=== PATIENT | male | born 1965 | race Caucasian/White ===

== ENCOUNTER 2022-09-10 02:59 | Emergency (ER) | payer BC, SELFPAY ==
[2022-09-10 03:05] VITALS: BP 166/102; PULSE 68; RESP 18; TEMP 36.5; O2SAT 100
--- NOTE | 2022-09-10 03:25 | CT_ITS ---
[address] [address] Patient Name: TEDDY DIAL MRN: [id number] date: 1965 Sex: M Assigned Patient Location: ER Current Patient Location: ED.MAIN Accession/Order Number: [id number] Exam Date: 09/10/2022 03:24 Report Date: 09/10/2022 04:12 At the request of: LEO MARKER Procedure: CT lumbar spine wo con EXAM: CT lumbar spine wo con HISTORY: left lower back pain reported right lower lumbar pain radiating down right leg for 4 days. COMPARISON: MRI lumbar spine 12/22/2017 TECHNIQUE: Multiple axial views CT lumbar spine without IV contrast. Coronal sagittal reformats. FINDINGS: No acute vertebral body height loss, acute fracture line, traumatic subluxation, or focal aggressive lytic destruction. Remote T12 vertebral body anterior wedging height loss of 20%, similar to prior exam. L2 vertebral body oval lucent 1.1 cm hemangioma. L3 vertebral body inferior endplate Schmorl's nodes. Prior laminectomy at L5 and L3. At T12-L1: Unremarkable. At L1-L2: Mild annular disc bulge, facet arthropathy, and ligamentum flavum thickening. No severe bony canal or bony foraminal narrowing. At L2-L3: Mild broad-based annular disc bulge, facet arthropathy, and ligamentum flavum thickening contribute to severe bony spinal canal stenosis, AP diameter of 5.5 mm. Mild left bony spinal canal stenosis. At L3-L4: Prior surgical changes of laminectomy. Broad-based annular disc bulge/herniation, facet arthropathy, and ligamentum flavum thickening contribute to severe bony spinal canal stenosis with AP diameter of 4 mm. Bilateral subarticular recess stenosis. Moderate bilateral bony foraminal stenosis. At L4-L5: Broad-based annular disc bulge/herniation, facet arthropathy, and ligamentum flavum thickening contribute to severe bony spinal canal stenosis with AP diameter of 5 mm. Bilateral subarticular recess stenosis. Severe right bony foraminal stenosis secondary to foraminal/extraforaminal disc and facet arthropathy. Moderate left bony foraminal stenosis. Can consider MRI lumbar spine to better evaluate for any nerve impingement as indicated. At L5-S1: Prior laminectomy. Decompressed bony spinal canal. Disc bulge and facet arthropathy contribute to severe bilateral bony foraminal stenosis. CT/CT lumbar spine wo con IMPRESSION: Multilevel lumbar disc bulges/herniations, facet arthropathy, and ligamentum flavum thickening as described above. Please see above. Electronically authenticated by: OSKAR RODRÍGUEZ Date: 09/10/2022 04:12
--- NOTE | 2022-09-10 03:25 | PC.NURSE ---
patient states wednesday he developed low right sided back pain that travels down his right leg. states pain has been increasing and today became unbearable. states he has history of spinal stenosis and multiple back surgeries. denies any recent trauma or injury.
--- NOTE | 2022-09-10 03:37 | ED.BACK1 ---
HPI - Back Pain/Injury General Chief Complaint: Back Pain/Injury Stated Complaint: LOWER BACK PAIN/RT LEG Time Seen by Provider: 09/10/22 03:04 Source: patient and family Mode of arrival: walk-in History of Present Illness HPI Narrative: This 56-year-old male with a history of chronic low back pain who has had several surgeries presents for evaluation of pain in the right low back with radiation into the right buttock and down the back of his right leg. Symptoms have been present since Wednesday but have been increasingly worsening. He is on several medications including low-dose naltrexone for the pain. He denies any recent injury. He has no chest pain or shortness of breath. He states he cannot sit, lie, stand or get comfortable in bed. He has never been diagnosed with sciatica. He has not had any bowel or bladder issues including constipation or incontinence. He has no weakness numbness or tingling. Pertinent past history: Reports prior back pain Related Data Allergies Allergy/AdvReac Type Severity Reaction Status Date / Time iodine Allergy Verified 09/10/22 03:10 Review of Systems ROS Status of ROS 10 or more systems reviewed and unremarkable except as noted in history and below [facility] Social History Smoking status: Never smoker Exam Narrative Exam Narrative: Nurses note and vital signs reviewed and patient is not hypoxic. Blood pressure was noted to be elevated at 166/102 General: The patient Is uncomfortable and is sitting on the edge of the bed, he has pain with any movement including lying flat on the bed, no respiratory distress Skin: Warm, dry, no pallor noted. There is no rash noted. Head: Normocephalic, atraumatic Eye: Normal conjunctiva, no drainage, EOMI. PERRL Ears, Nose, Mouth, and Throat: oral mucosa is moist. Cardiovascular: Regular Rate and Rhythm S1 and S2, no murmurs rubs or gallops appreciated Respiratory: lungs are clear to auscultation, no wheezing, rales or rhonchi Back: Healed midline lumbar incision, there is tenderness to palpation along the lateral aspect of the sacroiliac joints and in the left buttock. GI: Normal bowel sounds, no tenderness to palpation, no masses appreciated. No rebound, guarding, or rigidity noted. Musculoskeletal: The patient has no evidence of calf tenderness, calf sizes were compared [id number] and are equal. There is no calf redness, swelling, reproducible tenderness, negative Homans sign, no posterior popliteal tenderness or swelling Neurological: A&O x4, normal speech, upper and lower extremity strength and sensation are intact, straight leg raising test is positive on the right at approx 25 degrees with pain felt on the right side and at approx 15 degrees with elevation of the right leg, no saddle anesthesia Psychiatric: Cooperative Constitutional Vital Signs, click to edit/add: Last Vital Signs Temp 97.7 F 09/10/22 03:05 Pulse 84 09/10/22 07:15 Resp 18 09/10/22 07:15 BP 124/76 09/10/22 07:15 Pulse Ox 98 09/10/22 07:15 O2 Del Method Room Air 09/10/22 03:05 Course Reevaluation(s) Reevaluation #1: Pt re-evalauted after IM valium, IM toradol and IM dilaudid; he is standing at the sink stating that he has had no relief from the medications (he is on low dose Naltrexone which is likely keeping the dilaudid from working but should not impact the valium or toradol. He will be re-medicated with an IV dose of dilaudid and 125mg IV solumedrol. Time: 04:43 Vital Signs Vital signs: Vital Signs Temperature 97.7 F 09/10/22 03:05 Pulse Rate 68 09/10/22 03:05 Respiratory Rate 18 09/10/22 03:05 Blood Pressure 166/102 H 09/10/22 03:05 Pulse Oximetry 100 09/10/22 03:05 Oxygen Delivery Method Room Air 09/10/22 03:05 Temperature 97.7 F 09/10/22 03:05 Pulse Rate 84 09/10/22 07:15 Respiratory Rate 18 09/10/22 07:15 Blood Pressure 124/76 09/10/22 07:15 Pulse Oximetry 98 09/10/22 07:15 Oxygen Delivery Method Room Air 09/10/22 03:05 MDM - Back Pain/Injury MDM Narrative Medical decision making narrative: 1-year-old male with chronic back pain and lumbar spinal stenosis presents for evaluation of severe right-sided low back pain that radiates down the right leg. He is visibly uncomfortable upon arrival. He winces when moving on the bed. He has a normal neurologic exam. He has not had any bowel or bladder dysfunction. There is no weakness numbness or tingling. The patient does take a low-dose naltrexone and took it around 5:30 PM. His pain had been ongoing since Wednesday, 5 days ago. He does not take any narcotics. He was medicated initially with IM Toradol, oral Zofran, IM Valium and IM Dilaudid. On reevaluation he was not having any relief of his pain. CT scan of the lumbar spinous including the body of this report shows multiple areas of herniated disks and spinal stenosis. There was nothing noted on the CT scan about cauda equina. He does not have any symptoms of cauda equina. His symptoms are consistent with lumbar radiculopathy/sciatica. The results of his CT scan were discussed with him. In light of him not having any relief his pain he was remedicated with IV Solu-Medrol and 2 mg of IV Dilaudid as well as 60 mg of IM Norflex. On reevaluation he was still standing at the sink and stated that his pain was not any better. I explained to him that I am not going immediately able to make any progress due to the naltrexone with the narcotic medications. He verbalizes understanding of this. I discussed admission with him but again explained that the medications that we have may not help him in light of the naltrexone. He verbalizes understanding of this and feels comfortable being discharged home. He will be discharged home with 2 Percocet to take at the time when his naltrexone should be wearing off and a prescription for Percocet, Valium and ibuprofen. I encouraged him to follow up as soon as possible with his back surgeon and pain management physician and return to emergency department for follow-up bladder dysfunction, weakness numbness or any other neurologic symptoms Imaging Data CT lumbar spine: My impression: The [address] [address] [address] Scan Report Signed Patient: TEDDY DIAL MR#: [id number] : 1965 Acct:[id number] Age/Sex: 56 / M ADM Date: 09/10/22 Loc: ER Attending Dr: Ordering Physician: Leo Francois Date of Service: 09/10/22 Procedure(s): CT lumbar spine wo con Accession Number(s): [id number] cc: ISAIAH RIDER ~ ? [facility] ?? ? [address] [facility] ?? ? [place] [address] ? Patient Name: TEDDY DIAL ? MRN: [id number]? ? date: 1965? ? Sex: M Assigned Patient Location: ER Current Patient Location: ED.MAIN Accession/Order Number: [id number] Exam Date: 09/10/2022? 03:24? ? Report Date: 09/10/2022? 04:12 ? At the request of: LEO? MARKER? ? Procedure:? CT lumbar spine wo con ? EXAM: CT lumbar spine wo con ? HISTORY: left lower back pain reported right lower lumbar pain radiating down right leg for 4 days. ? COMPARISON: MRI lumbar spine 12/22/2017 ? TECHNIQUE: Multiple axial views CT lumbar spine without IV contrast. Coronal sagittal reformats. ? FINDINGS: ? No acute vertebral body height loss, acute fracture line, traumatic subluxation, or focal aggressive lytic destruction. ? Remote T12 vertebral body anterior wedging height loss of 20%, similar to prior exam. ? L2 vertebral body oval lucent 1.1 cm hemangioma. L3 vertebral body inferior endplate Schmorl's nodes. ? Prior laminectomy at L5 and L3. ? At T12-L1: Unremarkable. ? At L1-L2: Mild annular disc bulge, facet arthropathy, and ligamentum flavum thickening. No severe bony canal or bony foraminal narrowing. ? At L2-L3: Mild broad-based annular disc bulge, facet arthropathy, and ligamentum flavum thickening contribute to severe bony spinal canal stenosis, AP diameter of 5.5 mm. Mild left bony spinal canal stenosis. ? At L3-L4: Prior surgical changes of laminectomy. Broad-based annular disc bulge/herniation, facet arthropathy, and ligamentum flavum thickening contribute to severe bony spinal canal stenosis with AP diameter of 4 mm. Bilateral subarticular recess stenosis. Moderate bilateral bony foraminal stenosis. ? At L4-L5: Broad-based annular disc bulge/herniation, facet arthropathy, and ligamentum flavum thickening contribute to severe bony spinal canal stenosis with AP diameter of 5 mm. Bilateral subarticular recess stenosis. Severe right ? bony foraminal stenosis secondary to foraminal/extraforaminal disc and facet arthropathy. Moderate left bony foraminal stenosis. Can consider MRI lumbar spine to better evaluate for any nerve impingement as indicated. ? At L5-S1: Prior laminectomy. Decompressed bony spinal canal. Disc bulge and facet arthropathy contribute to severe bilateral bony foraminal stenosis. ? CT/CT lumbar spine wo con IMPRESSION: ? Multilevel lumbar disc bulges/herniations, facet arthropathy, and ligamentum flavum thickening as described above. Please see above. Discharge Plan Discharge Chief Complaint: Back Pain/Injury Clinical Impression: Lumbar radiculopathy, Spinal stenosis of lumbar region, Acute exacerbation of chronic low back pain, Herniation of intervertebral disc of lumbar region Patient Disposition: Home, Self-Care Time of Disposition Decision: 07:03 Condition: Fair Instructions: Lumbar Radiculopathy (ED), Back Pain (ED) Stand Alone Forms: Portal Instructions Referrals: ISAIAH RIDER [Primary Care Provider] - 1 week Discharge Date/Time: 09/10/22 07:16
[2022-09-10] MEDS: HYDROMORPHONE HCL 1 MG/ML CARTRIDGE IM (04:05)
[2022-09-10] MEDS: DIAZEPAM 5 MG/ML - 2 ML INJ SYRINGE IM (04:05)
[2022-09-10] MEDS: ONDANSETRON 4 MG RAPDIS TABLET SL (04:05)
[2022-09-10] MEDS: KETOROLAC TROMETHAMINE 60 MG/2 ML VIAL IM (04:11)
[2022-09-10] MEDS: HYDROMORPHONE HCL 2 MG/ML VIAL IV (05:24)
[2022-09-10] MEDS: METHYLPREDNISOLONE SOD SUCC PF 125 MG/2 ML VIAL IVP (05:25)
[2022-09-10] MEDS: ACETAMINOPHEN 325 MG TABLET 975 MG PO (06:30)
[2022-09-10] MEDS: ORPHENADRINE 60 MG/ 2 ML VIAL IM (06:30)
[2022-09-10 07:15] VITALS: BP 124/76; PULSE 84; RESP 18; O2SAT 98
== END 2022-09-10 07:16 | disposition home or self-care (01) ==
PROVIDERS: Emergency Provider Emergency Medicine; Family Provider Family Medicine; PCP Nurse Practitioner Family
DX: M51.16 Intervertebral disc disorders with radiculopathy, lumbar region (principal); M48.061 Spinal stenosis, lumbar region without neurogenic claudication; G89.29 Other chronic pain; M54.50 Low back pain, unspecified
CPT/HCPCS: 72131; 96372; 96374; 96375; 99284; J1170; J2930